=== PATIENT | female | born 1995 | race Caucasian/White ===

== ENCOUNTER → 2018-01-12 13:46 | Outpatient (CLI) | payer OTHER, MEDICAID, SELFPAY ==
--- NOTE | 2018-01-12 13:54 | US_ITS ---
STUDY: SECOND AND THIRD TRIMESTER OBSTETRICAL ULTRASOUND REASON FOR EXAM: Female, 22 years old. Anatomy. LMP: August 21, 2017. TECHNIQUE: Transabdominal PRIOR ULTRASOUND: None. FINDINGS: There is a single intrauterine fetus. The fetus is in a breech/transverse presentation with the head to the maternal right There is demonstrated cardiac activity with a heart rate of 155 bpm. There is a normal amniotic fluid volume. The largest amniotic fluid pocket measures 1.4 cm. The placenta is posterior in location and is not low lying. There are Grade 0 placental changes. The cervix measures 4.2 cm in length. The adnexal regions are not visualized. BIOMETRY: BPD: 4.51 cm: 19 weeks, 5 days HC: 17.99 cm: 20 weeks, 3 days AC: 14.97 cm: 20 weeks, 2 days FL: 3.32 cm: 20 weeks, 3 days CI: FL/BPD: 74 FL/HC: FL/AC: 22 HC/AC: 1.2 age by current US: 20 weeks, 2 days. MYRON by current US: May 30, 2018. Estimated weight: 344 grams, +/- 50 grams, 30 %. Age by LMP: 20 weeks, 4 days. MYRON by LMP: May 28, 2018. ANATOMY: Gender: Female Cranium: Normal lateral ventricles. Normal choroid plexus. Normal cerebellum. Normal cisterna magna. Normal face, nose and lips. Chest: Normal 4-chamber heart. Abdomen/Pelvis: Normal diaphragm. Normal stomach. Normal abdominal wall. Normal cord insertion. Normal 3 vessel cord. Normal kidneys. Normal bladder. Spine: Normal cervical spine. Normal thoracic spine. Normal lumbar spine. Normal sacrum. Extremities: Normal bilateral upper extremities. Normal bilateral lower extremities. US/OB Anatomy Scan IMPRESSION: 1. Live single intrauterine at 20 weeks, 2 days. MYRON is May 30, 2018. 2. EFW 344 g. 3. Adequate amniotic fluid. 4. Posterior grade 0 placenta. 5. Breech/transverse presentation. 6. No visualized anatomic abnormality. Electronically Signed: Bryant Brennan DO at 18:27 EDT Tel [phone], Service support ,
== END ==
PROVIDERS: Visit Provider Obstetrics & Gynecology
DX: Z34.90 Encounter for supervision of normal pregnancy, unspecified, unspecified trimester (principal)
CPT/HCPCS: 76805

== ENCOUNTER → 2018-03-15 15:24 | Outpatient (CLI) | payer MEDICAID, SELFPAY ==
[2018-03-15 14:51] VITALS: BMI 26.6
[2018-03-15 17:03] LABS: Absolute Lymphocyte Count 1.41 X10^3/ul (0.83-4.51); Absolute Neutrophil Count 5.1 X10^3/uL (2.0-7.7); Basophil# 0.01 X10^3/uL; Basophil% 0.1 % (0-1); Eosinophil# 0.08 X10^3/uL; Eosinophils% 1.1 % (0-5); Hematocrit 32.4 % (37-47); Hemoglobin 10.6 g/dl (12.0-15.0); Lymphocyte # 1.41 X10^3/ul (4.0); Lymphocyte % 19.3 % (19-41); Mean Corp Hgb Conc 32.7 g/gl (32-36); Mean Corpuscular Hgb 30.5 pg (27.0-32.0); Mean Corpuscular Volume 93.1 fL (81-99); Monocyte# 0.71 X10^3/uL; Monocyte% 9.7 % (0-10); Neutrophil # 5.08 X10^3/uL (2.7-7.7); Neutrophil % 69.5 % (47-70); Platelet Count 193 K/mm3 (150-450); RBC Distribution Width CV 13.2 % (11.6-14.6); Red Blood Count 3.48 M/mm3 (4.2-5.4); White Blood Count 7.3 K/mm3 (4.4-11.0)
[2018-03-15 17:06] LABS: POSITIVE COUNT NO; POSITIVE DIFFERENTIAL NO; POSITIVE MORPHOLOGY NO
[2018-03-15 17:10] LABS: Glucose Challenge Gest 1H 50g 117 mg/dL (70-140)
== END ==
PROVIDERS: Nurse Practitioner Women's Health; Referring Provider Obstetrics & Gynecology; Visit Provider Obstetrics & Gynecology
DX: Z34.90 Encounter for supervision of normal pregnancy, unspecified, unspecified trimester (principal)
CPT/HCPCS: 36415; 82950; 85025; 86850; 86870; 86900

== ENCOUNTER → 2018-05-02 18:10 | Outpatient (CLI) | payer OTHER, SELFPAY ==
[2018-05-02 16:21] VITALS: BMI 26.6
== END ==
PROVIDERS: Referring Provider Obstetrics & Gynecology; Visit Provider Obstetrics & Gynecology
DX: Z34.90 Encounter for supervision of normal pregnancy, unspecified, unspecified trimester (principal)
CPT/HCPCS: 87081

== ENCOUNTER 2018-05-20 16:45 | Outpatient (CLI) | payer MEDICAID, SELFPAY ==
[2018-05-10 16:41] VITALS: BMI 26.6
[2018-05-20 17:14] VITALS: BMI 28.0
[2018-05-20 17:45] LABS: ROM Internal Control Test YES-OK TO RESULT pt. (Internal QC); ROM Patient Test Negative (Negative)
--- NOTE | 2018-05-25 00:45 | OB.TRI.NOTE ---
- Problem List (1) False labor Status: Acute History of Present Illness Date of Service: 05/20/18 Reason For Visit: R/O ROM History of Present Illness: false labor questionable lof Allergies No Known Allergies Allergy (Verified 05/24/18 16:50) - Pertinent Past Medical History Medical History: Past Medical History (Last Reviewed 05/24/18 @ 16:48 by Liat Lorenz) Anxiety and depression Laboratory Studies: Laboratory Tests 05/20/18 Range/Units 17:05 Vag Amniotic Fld Detect Negative (Negative) NST - FHR Rate Baby A Baseline: 120 Variability:: Moderate Accelerations:: 15 x 15 Decelerations:: None NST Reactive:: Yes FHR Category:: Category I Uterine Activity:: irregular Impression/Plan false labor no cervical change negative rom dc home
== END 2018-05-20 17:55 | disposition home or self-care (01) ==
LOC: WPOUT 16:54 → WP 16:54
PROVIDERS: Referring Provider Obstetrics & Gynecology; Visit Provider Obstetrics & Gynecology
DX: O47.9 False labor, unspecified (principal); Z3A.00 Weeks of gestation of pregnancy not specified
CPT/HCPCS: 59025; 59050; 84112; 99218; G0378

== ENCOUNTER 2018-06-03 07:10 | Inpatient (IN) | payer MEDICAID, SELFPAY ==
[2018-06-03 07:14] VITALS: BMI 28.0
[2018-06-03] MEDS: Lactated Ringers 1,000 ML 50 ML IV ×2 (07:45→15:09)
[2018-06-03 08:10] LABS: Hematocrit 36.1 % (37-47); Hemoglobin 11.7 g/dl (12.0-15.0); Mean Corp Hgb Conc 32.4 g/gl (32-36); Mean Corpuscular Hgb 29.5 pg (27.0-32.0); Mean Corpuscular Volume 90.9 fL (81-99); Mean Platelet Vol. 11.4 fl (6.2-12.0); Platelet Count 183 K/mm3 (150-450); RBC Distribution Width CV 14.8 % (11.6-14.6); Red Blood Count 3.97 M/mm3 (4.2-5.4); Scan Indicated on CBC? Y/N NO; White Blood Count 8.6 K/mm3 (4.4-11.0)
[2018-06-03] MEDS: Oxytocin 30 units/NS 500 ml 30 UNITS/500 ML IV.SOLN IV (08:15)
[2018-06-03 08:21] VITALS: BMI 29.5
[2018-06-03 09:21] VITALS: O2SAT 95
[2018-06-03] MEDS: Nalbuphine 10 MG/ML Ampul IV (11:18)
[2018-06-03] MEDS: Ondansetron 4 MG/2 ML Vial IV (13:52)
--- NOTE | 2018-06-03 16:02 | PCM.HP.OB ---
- Problem List (1) Post-dates Status: Acute (2) Anemia affecting Status: Acute Qualifiers: Comment: check cbc mid march (3) Susceptible to varicella (non-immune), currently Status: Acute Comment: avoidance during , immunization after (4) Rh negative status during Status: Acute Qualifiers: Comment: Rhogam at 28 weeks, prn; Patient go rhogam and did not get labs done until 2 weeks later (5) Supervision of normal Status: Acute Qualifiers: Comment: PRR MYRON 05/28/18 Girl Dahiana Cecilio garcia (6) Headache in , antepartum Status: Acute Comment: tylenol, phenergan, caffeine PRN (7) Depression affecting Status: Acute Comment: zoloft and vistaril. encouraged counseling (8) Status: Acute Qualifiers: Comment: PRR. Carrier screen negative. F/U Quad results History Date of Admission: 06/03/18 Final MYRON: 05/28/18 Gestational age: 40 Weeks and 6 Days History of this : This is a 23 year-old, at 40 weeks 6 days gestational age presents for IOL 3 cm no vb lof good fmn o regular ctx uncomplicated Medical History: Medical History (Last Reviewed 05/31/18 @ 16:43 by Iris Bah) Anxiety and depression F41.9, F32.9 Allergies No Known Allergies Allergy (Verified 05/31/18 16:43) Home Medications: Home Medications vitamin,calcium,iyhkopex-gkqb-bbmgc acid tablet 1 tab PO DAILY 01/07/18 promethazine 12.5 mg tablet 12.5 mg PO Q6H PRN #60 tab 01/13/18 hydroxyzine pamoate 25 mg capsule 25 mg PO TID-QID PRN #60 cap 03/03/18 sertraline 100 mg tablet 150 mg PO QDAY #45 tab 05/02/18 Sertraline HCl [Zoloft] 100 mg PO QDAY 05/20/18 Smoking Status: Former smoker Alcohol: None Number of Fetus(es): 1 Heart Tracin-110 moderate variability reactive no decelerations category I tracing [place]: regular History Past Pregnancies: Past Pregnancies Delivery Date Name GA/Weeks Outcome Route Weight Infant Gender Labor Length Anesthesia Delivery Location Provider FOB Labs: Mom's Labs & Results 06/03/18 06/03/18 07:45 07:45 WBC 8.6 RBC 3.97 L Hgb 11.7 L Hct 36.1 L MCV 90.9 MCH 29.5 MCHC 32.4 RDW 14.8 H RDW Differential 48.0 H Plt Count 183 MPV 11.4 Blood Type B NEGATIVE Antibody Screen NEGATIVE Course Did the patient receive Yes care? Labs Blood Type: B RH: NEGATIVE RPR/VDRL/Syphilis Nonreactive Rubella status Immune HbSAg Negative Date Done: 11/17/17 Chlamydia Negative Gonorrhea Negative HIV/AIDS Non-Reactive Group B Strep: Negative Current Obstetrical History Gestational Diabetes No Incompetent Cervix No Infertility No IUGR No Macrosomia No Hypertension/Pre-eclampsia No Placenta Previa/Abruption No PTL/PROM No Uterine anomaly No Oligohydramnios No Polyhydramnios No Multiple gestation No Past Medical History Asthma No Diabetes No Hypertension No Heart disease No Mitral valve prolapse No Neurologic/Seizure disorder/ No Migraines Kidney disease No Liver disease No Varicosities No Clotting disorders/Hx of DVT No Thyroid Dysfunction No Other medical diseases No Psychiatric disorders Yes: depression/anxiety Major trauma No Abnormal PAP smear No Sleep apnea No Mammogram in the last 2 years No Social History Marital Status: SINGLE Alleged father Cecilio Parkinson Hx Smoking Yes Smoking Status Former smoker Expected Infant Delivery Method: Spontaneous Vaginal Review of Systems Constitutional: Denies: Fever, Malaise Eyes: Denies: Blurred vision, Vision Change HEENT: Denies: Head Aches, Visual Changes Cardiovascular: Denies: Chest Pain, Palpitations Respiratory: Denies: Cough, Shortness of Breath, Wheezing Gastrointestinal: Denies: Abdominal Pain, Diarrhea, Nausea, Vomiting Genitourinary: Denies: Dysuria, Hematuria Musculoskeletal: Denies: Joint Pain, Muscle pain Skin: Denies: Lesions, Rash Neurological: Denies: Blurred vision, Focal weakness, Headaches Psychiatric: Denies: Anxiety, Depression Endocrine: Denies: Heat/ Cold Intolerance Hematologic/ Lymphatic: Denies: Easy Bruising, Easy Bleeding Physical Exam Vitals: Vital Signs Pulse Ox 95 06/03/18 09:21 General: Alert, Cooperative, No apparent distress HEENT: Atraumatic, Normocephalic. Negative for: Thyromegaly, Lymphadenopathy Cardiovascular: Regular rate Lungs: Normal air movement Abdomen: Soft, Non Tender, Gravid Neurological: Deep Tendon Reflexes 2+/4 and Symmetrical, Neuro grossly intact. Negative for: Clonus [employer]: Normal external genitalia. Negative for: Vulvar lesions Estimated gestational size: Appropriate for gestational size Presentation: Cephalic Assessment/Plan All Active Problems (Last Reviewed 05/31/18 @ 16:43 by Iris Bah) False labor (Acute) Post-dates (Acute) Anemia affecting (Acute) Susceptible to varicella (non-immune), currently (Acute) Rh negative status during (Acute) Supervision of normal (Acute) Headache in , antepartum (Acute) Depression affecting (Acute) (Acute) This is a 23 year-old at 40 weeks 6 days gestational age presents IOL postdates Patient presents IOL, plan expectant management for , pitocin/AROM Pain management: minimal intervention GBS neg Management of any complications: none I have reviewed the [facility] and made any clinically relevant updates.
--- NOTE | 2018-06-03 16:04 | PCM.OB.VAG ---
- Problem List (1) Post-dates Status: Acute (2) Anemia affecting Status: Acute Qualifiers: Comment: check cbc mid march (3) Susceptible to varicella (non-immune), currently Status: Acute Comment: avoidance during , immunization after (4) Rh negative status during Status: Acute Qualifiers: Comment: Rhogam at 28 weeks, prn; Patient go rhogam and did not get labs done until 2 weeks later (5) Supervision of normal Status: Acute Qualifiers: Comment: PRR MYRON 05/28/18 Girl Dahiana Cecilio garcia (6) Headache in , antepartum Status: Acute Comment: tylenol, phenergan, caffeine PRN (7) Depression affecting Status: Acute Comment: zoloft and vistaril. encouraged counseling (8) Status: Acute Qualifiers: Comment: PRR. Carrier screen negative. F/U Quad results Vaginal Delivery Maternal Presentation: Medically Indicated Induction -year-old G one P0 at 40 weeks 6 days presents for induction of labor secondary to postdates. Medical Reason for Induction: Post term Amniotic Membrane Rupture Type: Artificial Amniotic Fluid Description: Clear Final MYRON: 05/28/18 Gestational age: 40 Weeks and 6 Days Date of Procedure: 06/03/18 Pre-Operative Diagnosis: iol postdate Post-Operative Diagnosis: same Surgery/ Procedure Performed: Spontaneous Vaginal Delivery Type of Anesthesia: Local with 1% lidocaine Description of Procedure: Patient began pushing and the heart was noted to be in the 80s-90s so with 1% local lidocaine the perineal body was injected in case of the need for episiotomy for delivery but this was not needed. Patient proceed to continue pushing and delivered the head in the JB presentation. The head was delivered atraumatically and due to pain and fever the mom closed her legs and it took her a few seconds to resume pushing to deliver the shoulders. Initially there was poor maternal pushing effort to deliver the shoulder but then with coaching and focus the anterior and posterior shoulders delivered without complication followed by the rest of the infant and the infant was placed on the maternal abdomen. Delayed cord clamping was employed for approximately 60 seconds. Cord was clamped and cut and gentle traction was applied to the cord and the placenta delivered spontaneously immediately following it was noted to be intact with three-vessel cord. The perineum and vagina were inspected and noted to have no significant laceration. EBL was 200 cc. Patient and tolerated delivery well. Presentation: JB
[2018-06-03 19:55] VITALS: BP 102/54; PULSE 91; RESP 16; TEMP 37.4; O2SAT 97
[2018-06-03] MEDS: Sertraline 100 MG Tablet PO (22:33)
[2018-06-04] VITALS: BP 100/47; PULSE 81; RESP 16; TEMP 37.3
[2018-06-04 04:00] VITALS: BP 96/55; PULSE 78; RESP 16; TEMP 36.7
[2018-06-04 10:00] VITALS: BP 102/56; PULSE 82; RESP 18; TEMP 36.6
--- NOTE | 2018-06-04 11:33 | PCM.PN.OB ---
Patient Problems: Active and Suspected Problems (Last Reviewed 05/31/18 @ 16:43 by Iris Bah) Post-dates (Acute) Subjective: doing well no complaints - Physical Exam General: Alert, Oriented x3 Vital Signs Temp Pulse Resp BP Pulse Ox 97.9 F 82 18 102/56 L 97 06/04/18 10:00 06/04/18 10:00 06/04/18 10:00 06/04/18 10:00 06/03/18 19:55 Oxygen Delivery Method Room Air Weight: 166 lb 7.184 oz Body Mass Index (BMI) 29.5 Intake and Output for Last 24 Hours 06/02/18 06/03/18 06/04/18 23:59 23:59 23:59 Intake Total 1911 / 1911 Output Total 1050 / 1050 Balance 861 / 861 Laboratory Tests Past 24 Hrs 06/03/18 18:20 Screen NEGATIVE Baby's Blood Type B POSITIVE Baby's MELISSA NEGATIVE Medical Necessity - Tobacco Use Smoking Status: Former smoker Assessment/Plan All Active Problems (Last Reviewed 05/31/18 @ 16:43 by Iris Bah) False labor (Acute) Post-dates (Acute) Anemia affecting (Acute) Susceptible to varicella (non-immune), currently (Acute) Rh negative status during (Acute) Supervision of normal (Acute) Headache in , antepartum (Acute) Depression affecting (Acute) (Acute) s/p PPD # 1 1. routine post delivery care 2. breast feeding- support given 3. rh negative- rhogam PRN 4. rubella immune
--- NOTE | 2018-06-04 11:35 | DCINST_ITS ---
Discharge Diet: No Restrictions Discharge Activity: Return to Normal Activity, May not drive while taking narcotic pain medications., May Shower May resume sexual activity in: 4-6 weeks Call your doctor if your incision/area has: Continuous Slow Oozing, Sudden Increased Bleeding, Increased Pain/ Swelling, Increased Redness, Foul Smelling Discharge Additional Instructions: If you experience any of the following, contact your healthcare provider. * Bleeding that soaks a pad every hour for 2 hours * Fever 100.4 or higher * Unrelieved incision or abdominal pain * Swelling, redness, discharge or bleeding from your incision or episiotomy site * Your incision begins to separate * Problems urinating (including inability to urinate or burning while urinating). * Visual changes * Severe headache * Flu-like symptoms * Pain or redness in one of both of your breasts * Pain, warmth, tenderness or swelling in your legs, especially the calf area * Frequent nausea and vomiting * Symptoms of depression or anxiety If you experience any of the following, call 911 or go to the nearest Emergency Room. * Chest pain * Problems breathing * Seizure activity * Partial or complete paralysis of a body part, slurred speech, weakness or drooping of the face, or a sudden inability to walk or hold your balance Allergies/Adverse Reactions: Allergies No Known Allergies Allergy (Verified 05/31/18 16:43) Medications to take at Discharge vitamin,calcium,poeycspa-rvyp-jsswe acid tablet 1 tab PO DAILY 01/07/18 promethazine 12.5 mg tablet 12.5 mg PO Q6H PRN #60 tab 01/13/18 hydroxyzine pamoate 25 mg capsule 25 mg PO TID-QID PRN #60 cap 03/03/18 sertraline 100 mg tablet 150 mg PO QDAY #45 tab 05/02/18 Sertraline HCl [Zoloft] 100 mg PO QDAY 05/20/18 Please Follow Up With: Sushila Vargas MD - [phone] When: Call to make an appointment with your doctor in 6 weeks. If you had elevated Blood pressure or 4th degree laceration you will need to be seen in 2 weeks. Primary Care Physician: Care Physician,No Primary [Primary Care Provider] - Test Results: Test results from this visit will be discussed in further detail at your follow- up appointment, if applicable.
--- NOTE | 2018-06-04 11:35 | PCM.DCVAG ---
Discharge Diet: No Restrictions Discharge Activity: Return to Normal Activity, May not drive while taking narcotic pain medications., May Shower May resume sexual activity in: 4-6 weeks Call your doctor if your incision/area has: Continuous Slow Oozing, Sudden Increased Bleeding, Increased Pain/ Swelling, Increased Redness, Foul Smelling Discharge Additional Instructions: If you experience any of the following, contact your healthcare provider. Bleeding that soaks a pad every hour for 2 hours Fever 100.4 or higher Unrelieved incision or abdominal pain Swelling, redness, discharge or bleeding from your incision or episiotomy site Your incision begins to separate Problems urinating (including inability to urinate or burning while urinating). Visual changes Severe headache Flu-like symptoms Pain or redness in one of both of your breasts Pain, warmth, tenderness or swelling in your legs, especially the calf area Frequent nausea and vomiting Symptoms of depression or anxiety If you experience any of the following, call 911 or go to the nearest Emergency Room. Chest pain Problems breathing Seizure activity Partial or complete paralysis of a body part, slurred speech, weakness or drooping of the face, or a sudden inability to walk or hold your balance Allergies/Adverse Reactions: Allergies No Known Allergies Allergy (Verified 05/31/18 16:43) Medications to take at Discharge vitamin,calcium,abwjkdgb-rfsg-zaelr acid tablet 1 tab PO DAILY 01/07/18 promethazine 12.5 mg tablet 12.5 mg PO Q6H PRN #60 tab 01/13/18 hydroxyzine pamoate 25 mg capsule 25 mg PO TID-QID PRN #60 cap 03/03/18 sertraline 100 mg tablet 150 mg PO QDAY #45 tab 05/02/18 Sertraline HCl [Zoloft] 100 mg PO QDAY 05/20/18 Please Follow Up With: Sushila Vargas MD - [phone] When: Call to make an appointment with your doctor in 6 weeks. If you had elevated Blood pressure or 4th degree laceration you will need to be seen in 2 weeks. Primary Care Physician: Care Physician,No Primary [Primary Care Provider] - Test Results: Test results from this visit will be discussed in further detail at your follow-up appointment, if applicable.
[2018-06-04 14:00] VITALS: BP 104/59; PULSE 71; RESP 16; TEMP 36.9
[2018-06-04 19:51] VITALS: BP 111/71; PULSE 82; RESP 18; TEMP 36.6; O2SAT 95
[2018-06-04] MEDS: Naproxen 250 MG Tablet PO (22:44)
[2018-06-04] MEDS: Sertraline 100 MG Tablet PO (22:44)
[2018-06-04] MEDS: Senna/Docusate Sodium 1 Tablet PO (22:44)
[2018-06-05 02:57] VITALS: BP 108/64; PULSE 68; RESP 15; TEMP 37.1; O2SAT 95
[2018-06-05 08:45] VITALS: BP 103/69; PULSE 77; RESP 16; TEMP 37.2; O2SAT 96
--- NOTE | 2018-06-05 14:41 | PCM.PN.OB ---
Patient Problems: Active and Suspected Problems (Last Reviewed 05/31/18 @ 16:43 by Iris Bah) Post-dates (Acute) Subjective: doing well no complaints pain controlled no CP SOB N V ambulating well tolerating po lochia moderate, going well - Physical Exam General: Alert, Oriented x3 Vital Signs Temp Pulse Resp BP Pulse Ox 98.9 F 77 16 103/69 96 06/05/18 08:45 06/05/18 08:45 06/05/18 08:45 06/05/18 08:45 06/05/18 08:45 Oxygen Delivery Method Room Air Weight: 166 lb 7.184 oz Body Mass Index (BMI) 29.5 Intake and Output for Last 24 Hours 06/03/18 06/04/18 06/05/18 23:59 23:59 23:59 Intake Total 1911 / 1911 Output Total 1050 / 1050 Balance 861 / 861 Medical Necessity - Tobacco Use Smoking Status: Former smoker Assessment/Plan All Active Problems (Last Reviewed 05/31/18 @ 16:43 by Iris Bah) False labor (Acute) Post-dates (Acute) Anemia affecting (Acute) Susceptible to varicella (non-immune), currently (Acute) Rh negative status during (Acute) Supervision of normal (Acute) Headache in , antepartum (Acute) Depression affecting (Acute) (Acute) s/p PPD # 2 1. routine post delivery care 2. breast feeding- support given 3. rh negative- rhogam PRN 4. rubella immune
[2018-06-05 14:42] VITALS: BP 109/72; PULSE 79; RESP 18; TEMP 36.8; O2SAT 96
== END 2018-06-05 16:25 | disposition home or self-care (01) | DRG 560 ==
PROVIDERS: Admitting Provider Obstetrics & Gynecology; Referring Provider Obstetrics & Gynecology; Visit Provider Obstetrics & Gynecology
DX: O48.0 Post-term pregnancy (principal); O99.343 Other mental disorders complicating pregnancy, third trimester; F32.9 Major depressive disorder, single episode, unspecified; O26.893 Other specified pregnancy related conditions, third trimester; Z3A.40 40 weeks gestation of pregnancy; Z37.0 Single live birth; Z87.891 Personal history of nicotine dependence; Z67.91 Unspecified blood type, Rh negative
CPT/HCPCS: 59025; 59050; 85027; 85461; 86850; 86900; 90384; 99218; J7120; G0378; J2405; J2790

== ENCOUNTER → 2020-06-03 | Outpatient (CLI) | payer MEDICAID, SELFPAY ==
[2020-06-03 11:36] VITALS: BMI 25.7
[2020-06-04 15:01] LABS: HPV Reflexed? NOT INDICATED
[2020-06-05 06:07] LABS: Chlamydia By Nucleic Acid AMP Negative (Negative)
[2020-06-05 12:20] LABS: Gonococcus By Nucleic Acid AMP Negative (Negative)
== END | disposition home or self-care (01) ==
LOC: LABSPEC 12:42
PROVIDERS: Visit Provider Nurse Practitioner Women's Health
DX: Z12.4 Encounter for screening for malignant neoplasm of cervix (principal)
CPT/HCPCS: 87491; 87591; 88175; G0145